=== PATIENT | male | born 1975 | race Caucasian/White ===

== ENCOUNTER 2023-01-17 17:39 | Emergency (ER) | payer OTHER ==
[2023-01-17 17:52] VITALS: BP 112/78; PULSE 108; RESP 16; TEMP 98.1; BMI 29.0
[2023-01-17 18:39] LABS: HEMATOCRIT 38.7 % (35.4-49); HEMOGLOBIN 13.2 G/dL (11.7-16.9); MCH 27.8 pg (25.7-33.7); MCHC 34.1 g/dl (32.0-35.9); MEAN CELL VOLUME 81.6 fl (80-96); MEAN PLT VOLUME 7.9 fl (7.5-11.1); PLATELET COUNT 211.1 10^3/uL (134-434); RBC 4.74 10^6/uL (4.00-5.60); RDW 15.6 % (11.9-15.9); WHITE BLOOD COUNT 7.5 10^3/uL (4.0-10.8)
[2023-01-17 18:58] LABS: ALBUMIN 4.5 g/dl (3.4-5.0); BILIRUBIN,TOTAL 0.4 mg/dl (0.2-1); CALCIUM 9.4 mg/dl (8.5-10.1); CREATININE 1.1 mg/dl (0.6-1.3); POTASSIUM 4.2 mmol/L (3.5-5.1); TOT PROT 6.3 g/dl (6.4-8.2)
[2023-01-17 20:46] LABS: PLATELET ESTIMATE ADEQUATE
== END 2023-01-17 19:26 | disposition home or self-care (01) ==
LOC: FER 17:39
DX: K62.5 Hemorrhage of anus and rectum (principal); K92.1 Melena; K59.00 Constipation, unspecified
CPT/HCPCS: 36415; 80053; 85025; 85027; 85610; 85730; 86850; 86900; 86901; 93005; 99283-25; 99285-25; G0378

== ENCOUNTER 2023-01-17 21:46 | Observation (INO) | payer OTHER ==
[2023-01-17] MEDS ORDERED: PEG/ELECTROLYTES (NULYTELY) 4,000 ML BOTTLE PO ONE (21:54)
[2023-01-17 21:55] VITALS: BMI 27.1
[2023-01-17 22:25] LABS: HEMATOCRIT 40.9 % (35.4-49); HEMOGLOBIN 13.8 G/dL (11.7-16.9); MCH 27.7 pg (25.7-33.7); MCHC 33.8 g/dl (32.0-35.9); MEAN CELL VOLUME 82.1 fl (80-96); MEAN PLT VOLUME 8.3 fl (7.5-11.1); PLATELET COUNT 221.5 10^3/uL (134-434); RBC 4.98 10^6/uL (4.00-5.60); RDW 15.6 % (11.9-15.9); WHITE BLOOD COUNT 9.3 10^3/uL (4.0-10.8)
[2023-01-17 22:35] LABS: INR 0.98 (0.83-1.09); PROTHROMBIN TIME (PATIENT) 11.4 SEC (9.7-13.0)
[2023-01-17 22:37] LABS: ACTIVATED PTT 35.9 SECONDS (25.2-36.5)
[2023-01-18 00:17] VITALS: RESP 18
[2023-01-18] MEDS ORDERED: PROPOFOL 40 ML ONE (08:39)
[2023-01-18 09:26] VITALS: BP 115/68; PULSE 91; TEMP 98.1
[2023-01-18 13:30] LABS: HEMATOCRIT 36.2 % (35.4-49); HEMOGLOBIN 12.2 G/dL (11.7-16.9); MCH 27.5 pg (25.7-33.7); MCHC 33.7 g/dl (32.0-35.9); MEAN CELL VOLUME 81.6 fl (80-96); PLATELET COUNT 206.5 10^3/uL (134-434); RBC 4.44 10^6/uL (4.00-5.60); RDW 15.6 % (11.9-15.9); WHITE BLOOD COUNT 6.7 10^3/uL (4.0-10.8)
== END 2023-01-18 18:50 | disposition home or self-care (01) ==
LOC: FER 21:46 → FM/S 22:54
PROVIDERS: ADMIT Internal Medicine; ATTEND Internal Medicine
PROC: 0W3P8ZZ Control Bleeding in Gastrointestinal Tract, Via Natural or Artificial Opening Endoscopic (ICD-10-PCS; principal; 2023-01-17)
PROC: 0W3P8ZZ Control Bleeding in Gastrointestinal Tract, Via Natural or Artificial Opening Endoscopic (ICD-10-PCS; 2023-01-17)
DX: K92.2 Gastrointestinal hemorrhage, unspecified (principal); Z98.890 Other specified postprocedural states; Z87.891 Personal history of nicotine dependence
CPT/HCPCS: 36415; 85025; 85027; 85610; 85730; 86850; 86900; 86901; 93005; 99285-25; G0378